=== PATIENT | male | born 1950 | race Caucasian/White ===

== ENCOUNTER → 2017-04-08 08:40 | Outpatient (POV) | payer MEDICARE, OTHER, SELFPAY | PROVIDERS: Family Provider Family Medicine; Visit Provider Dermatology | DX: Z00.00 Encounter for general adult medical examination without abnormal findings (principal) ==

== ENCOUNTER 2017-12-15 20:59 | Observation (INO) ==
--- NOTE | 2017-12-15 21:17 | Emergency Department Note ---
ED Disposition Clinical Impression: Pneumothorax on left Disposition: Admitted as Observation Condition on Discharge: Good - Critical Care Critical Care Time: No Attestation: On 12/15/17, the high probability of a clinically significant, sudden or life threatening deterioration of the following system(s) required my full and direct attention, intervention and personal management. The time I documented below is in addition to time spent performing reported procedures but includes the following listed in this critical care notation. Medical Decision Making - Medical Records Medical records reviewed: Yes: I reviewed the patient's medical records. - Bashir Inquiry Pt receiving controlled substance: No Vital Signs: 12/15/17 21:03 12/15/17 23:24 Temperature 98.6 F Temperature Source Oral Pulse Rate [Right Radial] 78 Respiratory Rate 20 Blood Pressure [Right Arm] 137/76 Blood Pressure Mean [Right Arm] 96 02 Sat by Pulse Oximetry 98 99 Oxygen Delivery Method Nasal Cannula Oxygen Flow Rate (LPM) 2 - Lab Data Lab results reviewed: Yes: I reviewed the patient's lab results. Lab Results 12/15/17 21:24: WBC 10.7, RBC 4.59 L, Hgb 14.2, Hct 43.0, MCV 93.7, MCH 31.0, MCHC 33.1, RDW 12.3, Plt Count 219, MPV 7.2 L, Neut % (Auto) 88.6 H, Lymph % (Auto) 6.5 L, Stanton % (Auto) 4.1, Eos % (Auto) 0.7, Baso % (Auto) 0.2, Neut # (Auto) 9.5 H, Lymph # (Auto) 0.7, Stanton # (Auto) 0.4, Eos # (Auto) 0.1, Baso # (Auto) 0.0, Total Counted 100, Neutrophils % (Manual) 94 H, Lymphocytes % (Manual) 6 L, Platelet Estimate Normal, Anisocytosis 1+ 12/15/17 21:24: Sodium 141, Potassium 4.3, Chloride 106, Carbon Dioxide 29, Anion Gap 10.3, BUN 23 H, Creatinine 1.23, Estimated Creat Clear 66, Estimated GFR 58 L, Est GFR ( Amer) 71, Glucose 136 H, Calcium 9.1 Result diagrams: 12/15/17 21:24 12/15/17 21:24 Orders (Tests/Meds): ED MEDICATIONS Discontinued Medications Generic Name Dose Route Start Last Admin Trade Name Freq PRN Reason Stop Dose Admin Ketorolac Tromethamine 60 mg 12/15/17 21:11 12/15/17 21:13 Toradol 30mg/Ml Vial IM 12/15/17 21:12 60 mg ONCE ONE Administration ORDERS Category Date Time Status CT abdomen pelvis w con Stat Cat Scan 12/15/17 21:[address] angio chest Stat Cat Scan 12/15/17 21:[address] cervical spine wo con Stat Cat Scan 12/15/17 21:[address] head/brain wo con Stat Cat Scan 12/15/17 21:12 Taken XR chest AP Stat Exams 12/15/17 21:18 Taken XR hip LT 2-3V w/pelvis Stat Exams 12/15/17 21:11 Taken - Radiology Data #1 Image(s): Chest, Pelvis Image Reviewed: Yes I reviewed the patient's radiology image Preliminary Findings: No Fracture Seen - CT Data CT Scan: Head, C-Spine, Abdomen, Pelvis Time Received: 23:[address] Reviewed: Yes: I have viewed the radiologist's interpretation Preliminary Findings: Abnormal (lt apical pxt ) Trauma Alert The Trauma Alert Section documentation for [id number] EmeryDeacon Thomas was populated with data that defaulted in from the disk sharpener in the Trauma Alert Triage Assessment on _Reg Service Date] to provide within this report, the status of the patient on arrival to the ED during the Trauma Alert. - Arrival Mode of Arrival: Family Vehicle Description of Symptoms (Recalled from ER Triage Doc. by RN): pt states that today at approx 1600 he fell off of his horse, which he estimates at approx 5 feet. pt c/o left ribs and left hip pain. - Pre-Hospital Care Pre-Hospital Care Given: No - Height/Weight/BMI Height: 6 ft Weight: 182 lb Weight Measurement Method: Stated by Patient Body Mass Index: 24.7 - Immunization Status Hx Immunizations Up to Date: Yes Trauma HPI - General Chief Complaint: Fall Stated Complaint: AO [id number] fell off horse,left side Time Seen by Provider: 12/15/17 21:05 Mode of Arrival: Family Vehicle Source of Information: Patient, Spouse, Medical Record Limitations: No Limitations Description of Symptoms (Recalled from ER Triage Doc. by RN): pt states that today at approx 1600 he fell off of his horse, which he estimates at approx 5 feet. pt c/o left ribs and left hip pain. - History of Present Illness MD complaint: fall Onset (ago): hour(s) Loss of Consciousness: no Location: chest Location - Extremities: Left: shoulder Severity: moderate Context: fall Associated symptoms: denies other symptoms ( ) - Related Data Home Medications Medication Instructions Recorded Confirmed Aspirin 81 mg PO DAILY 12/15/17 12/15/17 Citalopram Hydrobromide [Celexa] 10 mg PO DAILY 12/15/17 12/15/17 Simvastatin 20 mg PO DAILY 12/15/17 12/15/17 Allergies Allergy/AdvReac Type Severity Reaction Status Date / Time No Known Allergies Allergy Verified 12/15/17 21:09 [facility] History I have reviewed the patient's past medical history: Yes Medical History: Denies:: Cancer, Diabetes Mellitus Type 1, Diabetes Mellitus Type 2, MRSA Amputation: No Fractures: Yes - Social History Smoking Status: Former smoker Alcohol Intake: never - Psychiatric History Expresses thoughts of harming self/others: None Suicide Plan Description: No Plan ROS Obtained: Yes All systems reviewed & no additional complaints - Constitutional Constitutional: Denies fever(s), Denies headache(s) - Eyes Eyes: Denies change in vision - ENT Ears, Nose, Mouth, and Throat: Denies sore throat - Cardiovascular Cardiovascular: Reports chest pain - Respiratory Respiratory: No cough, No dyspnea, No coughing up blood - Gastrointestinal Gastrointestingal: Denies: abdominal pain, nausea, vomiting - Genitourinary Male Genitourinary: Denies hematuria - Musculoskeletal Musculoskeletal: Denies joint pain, Denies back pain, Denies neck pain - Integumentary/Breasts Skin/Breast: Denies rash - Neurologic Neurologic: Denies headache(s), Denies seizure-like activity Physical Exam - General General appearance: alert, in no apparent distress - Head Head exam: normocephalic - Eye Eye exam: Present: PERRL, EOMI - ENT ENT exam: Present: mucous membranes moist - Neck Neck exam: Present: trachea midline - Chest Chest inspection: Present: symmetric chest wall rise, other (tender lt chest no sq air ) - Respiratory Respiratory exam: Present: normal lung sounds bilaterally. Absent: respiratory distress - Cardiovascular Cardiovascular exam: Present: regular rate, systolic murmur. Absent: rubs, clicks - Abdominal Exam Abdominal exam: Present: soft. Absent: tenderness - Extremities Exam Extremities exam: Present: full ROM - Back Exam Back exam: Present: normal inspection, other (pelvis stable ). Absent: vertebral tenderness - Neurological Exam Neurological exam: Present: alert, oriented X3, CN II-XII intact, other (gcs=15). Absent: motor sensory deficit - Psychiatric Psychiatric exam: Absent: normal affect - Skin Skin exam: Absent: rash
[2017-12-15 21:36] LABS: Basophils % 0.2 % (0.1-2.0); Eosinophils # 0.1 K/mm3 (0.0-0.4); Eosinophils % 0.7 % (0.1-12.0); Hemoglobin 14.2 g/dL (14.1-18.0); Lymphocytes # 0.7 K/mm3 (0.7-4.5); Lymphocytes % 6.5 K/mm3 (10-50); Mean Corpuscular HGB Conc 33.1 g/dL (31.8-35.4); Mean Corpuscular Volume 93.7 fl (80-94); Mean Platelet Volume 7.2 fl (7.4-10.4); Monocytes # 0.4 K/mm3 (0.1-1.0); Monocytes % 4.1 % (1.7-9.3); Neutrophils # 9.5 K/mm3 (1.8-7.8); Neutrophils % 88.6 % (37.0-80.0); Platelet Count 219 K/mm3 (142-424); Red Blood Count 4.59 M/mm3 (4.60-6.20); Red Cell Distribution Width 12.3 % (11.5-17.5); White Blood Count 10.7 K/mm3 (4.8-10.8)
[2017-12-15 21:41] LABS: Anion Gap 10.3 mEq/L (5-15); Calcium 9.1 mg/dL (8.5-10.1); Potassium 4.3 mmoL/L (3.5-5.1)
[2017-12-15 22:12] LABS: Anisocytosis 1+; Lymphocytes % 6 % (10-50); Neutrophils % 94 % (42-76); Total Cells Counted 100
[2017-12-16 06:16] LABS: Basophils % 0.5 % (0.1-2.0); Eosinophils % 0.6 % (0.1-12.0); Hematocrit 39.7 % (42.0-52.0); Lymphocytes # 1.4 K/mm3 (0.7-4.5); Lymphocytes % 21.1 K/mm3 (10-50); Mean Corpuscular HGB Conc 32.7 g/dL (31.8-35.4); Mean Corpuscular Hemoglobin 30.9 pg (27.0-31.2); Mean Corpuscular Volume 94.3 fl (80-94); Mean Platelet Volume 7.3 fl (7.4-10.4); Monocytes # 0.4 K/mm3 (0.1-1.0); Monocytes % 5.9 % (1.7-9.3); Neutrophils # 4.8 K/mm3 (1.8-7.8); Neutrophils % 71.9 % (37.0-80.0); Platelet Count 187 K/mm3 (142-424); Red Blood Count 4.21 M/mm3 (4.60-6.20); Red Cell Distribution Width 12.3 % (11.5-17.5); White Blood Count 6.7 K/mm3 (4.8-10.8)
[2017-12-16 06:19] LABS: Anion Gap 9.5 mEq/L (5-15); Calcium 8.5 mg/dL (8.5-10.1); Potassium 4.5 mmoL/L (3.5-5.1)
--- NOTE | 2017-12-16 07:56 | Pharmacy Consult Notes ---
[facility] Pharmacy VTE Monitoring - Patient Demographics Admission date: 12/15/17 Report Date: 12/16/17 Time: 07:56 Allergies/Adverse Reactions: Patient Allergies No Known Allergies Allergy (Verified 12/15/17 21:09) Height: 1.83 m Weight: 80.484 kg Patient Problems: Current Active Problems Pneumothorax on left (Acute) - VTE Risk Labs: VTE Related Lab Results Hgb 13.0 g/dL (14.1-18.0) L 12/16/17 05:32 Hct 39.7 % (42.0-52.0) L 12/16/17 05:32 Plt Count 187 K/mm3 (142-424) 12/16/17 05:32 BUN 23 mg/dL (7-18) H 12/16/17 05:32 Creatinine 1.14 mg/dL (0.70-1.30) 12/16/17 05:32 Estimated Creat Clear 70 mL/min (0-300) 12/16/17 05:32 Was VTE Risk Assessment Performed: Yes VTE Score: 1 VTE Risk Level: Very Low Risk - Prophylaxis VTE Prophylaxis Ordered?: Yes Types of VTE Prophylaxis: TEDS Knee High Location of Applied Device: Bilateral Lower Extremeties - VTE Diagnosis Confirmed Treatment or plan recommended: Continue Current Treatment
--- NOTE | 2017-12-16 10:24 | Progress Note ---
Internal Medicine - PN: Subj *Date: 12/16/17 *Time: 10:21 Interval history: See the H&P. Clinically the patient is very stable. He states that he is not as sore as he was last night. His vital signs are stable. He has some tenderness on the left side of his chest and there is a subtle bruise toward the posterior aspect of the chest on the left side. On auscultation he has a definite rub. The radiologic studies were reviewed with Dr. Hoyos. On admission the chest x-ray did not reveal the pneumothorax but the CT scan did. Today a 10% pneumothorax is visible on his chest x-ray raising the question of whether the pneumothorax is increasing. It certainly has not decreased overnight. Exam Vital signs and Labs for Last 24 Hours: Temp Pulse Resp BP Pulse Ox 98.1 F 57 L 18 117/61 99 12/16/17 07:55 12/16/17 07:55 12/16/17 07:55 12/16/17 07:55 12/16/17 07:55 Laboratory Results - last 24 hr 12/15/17 21:24: WBC 10.7, RBC 4.59 L, Hgb 14.2, Hct 43.0, MCV 93.7, MCH 31.0, MCHC 33.1, RDW 12.3, Plt Count 219, MPV 7.2 L, Neut % (Auto) 88.6 H, Lymph % (Auto) 6.5 L, Saunders % (Auto) 4.1, Eos % (Auto) 0.7, Baso % (Auto) 0.2, Neut # (Auto) 9.5 H, Lymph # (Auto) 0.7, Saunders # (Auto) 0.4, Eos # (Auto) 0.1, Baso # (Auto) 0.0, Total Counted 100, Neutrophils % (Manual) 94 H, Lymphocytes % (Manual) 6 L, Platelet Estimate Normal, Anisocytosis 1+ 12/15/17 21:24: Sodium 141, Potassium 4.3, Chloride 106, Carbon Dioxide 29, Anion Gap 10.3, BUN 23 H, Creatinine 1.23, Estimated Creat Clear 66, Estimated GFR 58 L, Est GFR ( Amer) 71, Glucose 136 H, Calcium 9.1 12/16/17 05:32: WBC 6.7 D, RBC 4.21 L, Hgb 13.0 L, Hct 39.7 L, MCV 94.3 H, MCH 30.9, MCHC 32.7, RDW 12.3, Plt Count 187, MPV 7.3 L, Neut % (Auto) 71.9, Lymph % (Auto) 21.1, Saunders % (Auto) 5.9, Eos % (Auto) 0.6, Baso % (Auto) 0.5, Neut # (Auto) 4.8, Lymph # (Auto) 1.4, Saunders # (Auto) 0.4, Eos # (Auto) 0.0, Baso # (Auto) 0.0 12/16/17 05:32: Sodium 143, Potassium 4.5, Chloride 108 H, Carbon Dioxide 30, Anion Gap 9.5, BUN 23 H, Creatinine 1.14, Estimated Creat Clear 70, Estimated GFR 64, Est GFR ( Amer) 77, Glucose 98 D, Calcium 8.5 I & O for Last 24 hours: Intake & Output 12/13/17 12/14/17 12/15/17 12/16/17 11:59 11:59 11:59 11:59 Intake Total 360 / 360 Balance 360 / 360 Weight 177 lb 7 oz - Constitutional no acute distress - *Routine HEENT Exam Head: Present: atraumatic - *Routine Neck Exam Present: supple, full ROM. Absent: trauma - Routine Chest/Breast/Axilla Exam Comments: There is some tenderness on the left chest. There is a bruise posteriorly on the chest very small and subtle. He has a definite rub on auscultation of the chest on the left. There is no crepitus to palpation. - *Routine Cardiovascular Exam Present: RRR - *Routine Abdominal Exam Present: soft, normoactive bowel sounds. Absent: tenderness Assessment and Plan (1) Pneumothorax on left Current visit: Yes Status: Acute Category: Medical Code(s): J93.9 - Pneumothorax, unspecified (2) Fall from horse Current visit: Yes Status: Acute Category: Medical Code(s): V80.010A - Animal-rider injured by fall from or being thrown from horse in noncollision accident, initial encounter (3) Hyperlipidemia Current visit: Yes Status: Chronic Category: Medical Code(s): E78.5 - Hyperlipidemia, unspecified - Assessment and plan all Dx Assessment and Plan for all problems:: He will be observed overnight again with oxygen in place. Follow-up chest x-ray in the morning.
--- NOTE | 2017-12-17 08:11 | Progress Note ---
Internal Medicine - PN: Subj *Date: 12/17/17 *Time: 08:08 Interval history: Patient states he is feeling well this morning. He is still having some mild pain in his left side. He slept well last night and has been eating well. Denies any shortness of breath. Exam Vital signs and Labs for Last 24 Hours: Temp Pulse Resp BP Pulse Ox 97.8 F 84 20 111/64 92 L 12/17/17 07:51 12/17/17 07:51 12/17/17 07:51 12/17/17 07:51 12/17/17 07:51 I & O for Last 24 hours: Intake & Output 12/14/17 12/15/17 12/16/17 12/17/17 11:59 11:59 11:59 11:59 Intake Total 360 / 360 2807 / 2807 Balance 360 / 360 2807 / 2807 Weight 177 lb 7 oz Radiology Reports for the Last 24 Hours: CXR - 1. Left apical pneumothorax once again noted unchanged to slightly smaller. 2. Increasing airspace disease in the left lung base consistent with atelectasis or infiltrate or contusion with small effusion - Constitutional no acute distress - *Routine Respiratory Exam Absent: wheezes Comments: rub on left side, some faint rales on the left as well - *Routine Cardiovascular Exam Present: RRR - *Routine Abdominal Exam Present: soft, normoactive bowel sounds. Absent: tenderness - *Routine Extremities Exam Absent: edema Assessment and Plan (1) Pneumothorax on left Current visit: Yes Status: Acute Category: Medical Code(s): J93.9 - Pneumothorax, unspecified (2) Fall from horse Current visit: Yes Status: Acute Category: Medical Code(s): V80.010A - Animal-rider injured by fall from or being thrown from horse in noncollision accident, initial encounter (3) Hyperlipidemia Current visit: Yes Status: Chronic Category: Medical Code(s): E78.5 - Hyperlipidemia, unspecified - Assessment and plan all Dx Assessment and Plan for all problems:: CXR report reviewed. Will discuss findings with Dr. Acosta.
--- NOTE | 2017-12-17 08:30 | History & Physical Report ---
*Admission Date: 12/15/17 *Chief complaint: left side pain *History of present illness: Mr. Land is a 67-year-old male who was riding a horse yesterday. He states the horse went one way and he fell off the other way. He landed on his left side. This happened at approximately 4 PM. He states he went inside and laid down and was feeling better until he tried to get up and had significant pain in his left ribs. He had pain with deep breathing and therefore presented to the emergency room for evaluation. He had numerous x-rays no fractures were found, however he did have a left-sided pneumothorax. He was admitted for serial x-rays. At this time, the patient is feeling much better. He states his pain has improved and he is anxious to go home. [facility] History Medical History: Reports:: Hyperlipidemia Denies:: Cancer, Diabetes Mellitus Type 1, Diabetes Mellitus Type 2, Internal Pacemaker, MRSA Other Medical History: Reports: Arthritis Other Surgeries: Yes: Colonoscopy. No: Pacemaker Amputation: No Fractures: Yes - *Social History Educational Level: Completed High School Smoking Status: Former smoker Alcohol Intake: never Occupational Status: retired Housing: house Household Members: spouse - Psychiatric History Expresses thoughts of harming self/others: None Suicide Plan Description: No Plan *Family Hx:: Coronary Artery Disease, Diabetes, Heart Attack, Hyperlipidemia, Hypertension, Stroke Review of Systems - Constitutional Denies fatigue, Denies weakness - Eyes Denies blurry vision, Denies double vision - ENT Denies nasal congestion, Denies sore throat - *Cardiovascular Reports chest pain (left sided), Denies shortness of breath (but pain with deep breathing) - *Respiratory Reports pain on inspiration, Denies cough - *Gastrointestinal Denies abdominal pain, Denies loose stools, Denies nausea, Denies vomiting - *Genitourinary Denies difficulty urinating, Denies painful urination - *Musculoskeletal Denies joint pain - *Neurologic Denies headache(s), Denies seizure-like activity, Denies dizziness, Denies weakness Meds Home Medications Medication Instructions Recorded Confirmed Type Aspirin 81 mg PO DAILY 12/15/17 12/16/17 History Citalopram Hydrobromide [Celexa] 10 mg PO DAILY 12/15/17 12/16/17 History Simvastatin 20 mg PO DAILY 12/15/17 12/16/17 History Allergies Allergy/AdvReac Type Severity Reaction Status Date / Time No Known Allergies Allergy Verified 12/15/17 21:09 Exam Vital signs and Labs for Last 24 Hours: Temp Pulse Resp BP Pulse Ox 98.1 F 57 L 18 117/61 99 12/16/17 07:55 12/16/17 07:55 12/16/17 07:55 12/16/17 07:55 12/16/17 07:55 Laboratory Results - last 24 hr 12/15/17 21:24: WBC 10.7, RBC 4.59 L, Hgb 14.2, Hct 43.0, MCV 93.7, MCH 31.0, MCHC 33.1, RDW 12.3, Plt Count 219, MPV 7.2 L, Neut % (Auto) 88.6 H, Lymph % (Auto) 6.5 L, Hardin % (Auto) 4.1, Eos % (Auto) 0.7, Baso % (Auto) 0.2, Neut # (Auto) 9.5 H, Lymph # (Auto) 0.7, Hardin # (Auto) 0.4, Eos # (Auto) 0.1, Baso # (Auto) 0.0, Total Counted 100, Neutrophils % (Manual) 94 H, Lymphocytes % (Manual) 6 L, Platelet Estimate Normal, Anisocytosis 1+ 12/15/17 21:24: Sodium 141, Potassium 4.3, Chloride 106, Carbon Dioxide 29, Anion Gap 10.3, BUN 23 H, Creatinine 1.23, Estimated Creat Clear 66, Estimated GFR 58 L, Est GFR ( Amer) 71, Glucose 136 H, Calcium 9.1 12/16/17 05:32: WBC 6.7 D, RBC 4.21 L, Hgb 13.0 L, Hct 39.7 L, MCV 94.3 H, MCH 30.9, MCHC 32.7, RDW 12.3, Plt Count 187, MPV 7.3 L, Neut % (Auto) 71.9, Lymph % (Auto) 21.1, Hardin % (Auto) 5.9, Eos % (Auto) 0.6, Baso % (Auto) 0.5, Neut # (Auto) 4.8, Lymph # (Auto) 1.4, Hardin # (Auto) 0.4, Eos # (Auto) 0.0, Baso # (Auto) 0.0 12/16/17 05:32: Sodium 143, Potassium 4.5, Chloride 108 H, Carbon Dioxide 30, Anion Gap 9.5, BUN 23 H, Creatinine 1.14, Estimated Creat Clear 70, Estimated GFR 64, Est GFR ( Amer) 77, Glucose 98 D, Calcium 8.5 I & O for Last 24 hours: Intake & Output 12/13/17 12/14/17 12/15/17 12/16/17 11:59 11:59 11:59 11:59 Intake Total 360 / 360 Balance 360 / 360 Weight 177 lb 7 oz - Constitutional no acute distress - *Routine HEENT Exam Head: Present: normocephalic, atraumatic Eye: Present: EOMI, PERRL ENT: Present: mucous membranes moist - *Routine Neck Exam Present: supple, full ROM - Routine Chest/Breast/Axilla Exam Chest wall: Present: tenderness (left sided chest wall ttp) - *Routine Respiratory Exam Present: CTA bilaterally - *Routine Cardiovascular Exam Present: RRR - *Routine Abdominal Exam Present: soft, normoactive bowel sounds. Absent: tenderness - *Routine Extremities Exam Absent: edema - Routine Back/Spine/Pelvis Exam Back/Spine: Present: full ROM - *Routine Skin Exam Present: intact - *Routine Neurological Exam Present: alert, oriented X3 H&P: Result - Impressions Abd CT 1. No acute intra-abdominal or pelvic findings. 2. Small left-sided pneumothorax without midline shift. 3. 2 mm pleural-based nodule left lower lobe. Recommend 3 month follow-up 4. Subcutaneous contusion overlying the left lateral pelvic region and left lateral abdominal wall 5. 2 liver lesions one of which is isodense and may represent a small cyst and one which is hypodense in the right hepatic lobe at 9 mm etiology indeterminate. Suggest 3 month follow-up without and with contrast with hemangioma protocol CTA 1. Small left-sided pneumothorax of approximately 10%. No midline shift. No displaced fractures evident. 2. Left-sided pulmonary nodules the largest measuring 10 mm in the left lower lobe. Suggest 3 month follow-up. CXR - Small left apical pneumothorax which is below limits of resolution on the chest x-ray but seen on the cervical spine CT. Otherwise negative Head CT and hip x-ray - negative Assessment and Plan (1) Pneumothorax on left Current visit: Yes Status: Acute Category: Medical Code(s): J93.9 - Pneumothorax, unspecified (2) Fall from horse Current visit: Yes Status: Acute Category: Medical Code(s): V80.010A - Animal-rider injured by fall from or being thrown from horse in noncollision accident, initial encounter (3) Hyperlipidemia Current visit: Yes Status: Chronic Category: Medical Code(s): E78.5 - Hyperlipidemia, unspecified - Assessment and plan all Dx Assessment and Plan for all problems:: Awaiting repeat chest x-ray results from this morning. If pneumothorax has resolved, patient may be able to be discharged home.
[2017-12-17 09:12] LABS: Basophils % 0.3 % (0.1-2.0); Eosinophils # 0.1 K/mm3 (0.0-0.4); Eosinophils % 0.9 % (0.1-12.0); Hemoglobin 13.1 g/dL (14.1-18.0); Lymphocytes # 0.9 K/mm3 (0.7-4.5); Lymphocytes % 13.9 K/mm3 (10-50); Mean Corpuscular HGB Conc 32.8 g/dL (31.8-35.4); Mean Corpuscular Volume 94.6 fl (80-94); Mean Platelet Volume 7.8 fl (7.4-10.4); Monocytes # 0.3 K/mm3 (0.1-1.0); Monocytes % 4.3 % (1.7-9.3); Neutrophils # 5.2 K/mm3 (1.8-7.8); Neutrophils % 80.6 % (37.0-80.0); Platelet Count 176 K/mm3 (142-424); Red Blood Count 4.23 M/mm3 (4.60-6.20); Red Cell Distribution Width 12.4 % (11.5-17.5); White Blood Count 6.5 K/mm3 (4.8-10.8)
--- NOTE | 2017-12-20 15:39 | Discharge Summary ---
General - General Admission date:: 12/16/17 Discharge date: 12/17/17 HPI HPI: Mr. Land is a 67-year-old male who was riding a horse yesterday. He states the horse went one way and he fell off the other way. He landed on his left side. This happened at approximately 4 PM. He states he went inside and laid down and was feeling better until he tried to get up and had significant pain in his left ribs. He had pain with deep breathing and therefore presented to the emergency room for evaluation. He had numerous x-rays no fractures were found, however he did have a left-sided pneumothorax. He was admitted for serial x-rays. At this time, the patient is feeling much better. He states his pain has improved and he is anxious to go home. Hospital Course Hospital Course: The patient's CTA showed a small left sided pneumothorax. His initial CXR did not show the pneumothorax. A repeat CXR the next day showed a 10% pneumothorax, therefore the patient was kept another night for monitoring with oxygen in place. He had another CXR showing a decrease in the pneumothorax but some effusion vs. infiltrate in the left base. His WBC was normal and he was stable to be discharged home on some cefdinir. Objective Vital signs: Temp Pulse Resp BP Pulse Ox 97.8 F 84 20 111/64 92 L 12/17/17 07:51 12/17/17 07:51 12/17/17 07:51 12/17/17 07:51 12/17/17 07:51 Narrative: - Constitutional no acute distress - *Routine HEENT Exam Head: Present: normocephalic, atraumatic Eye: Present: EOMI, PERRL ENT: Present: mucous membranes moist - *Routine Neck Exam Present: supple, full ROM - Routine Chest/Breast/Axilla Exam Chest wall: Present: tenderness (left sided chest wall ttp) - *Routine Respiratory Exam Present: CTA bilaterally - *Routine Cardiovascular Exam Present: RRR - *Routine Abdominal Exam Present: soft, normoactive bowel sounds. Absent: tenderness - *Routine Extremities Exam Absent: edema - Routine Back/Spine/Pelvis Exam Back/Spine: Present: full ROM - *Routine Skin Exam Present: intact - *Routine Neurological Exam Present: alert, oriented X3 DS: Diagnosis - Discharge Diagnosis (1) Pneumothorax on left Status: Acute (2) Fall from horse Status: Acute (3) Hyperlipidemia Status: Chronic Discharge Plan - Patient Discharge Instructions ACTIVITY: Limited activity DIET: continue same diet Additional Instructions: Notify of SOA, fever. Patient Instructions: DI for Pneumothorax Forms: Transfer Record - ED - Follow up Plan Follow up with: Miky Acosta MD [Primary Care Provider] - 12/20/17 Disposition: Home, Self-[facility] Medications: Home Medications Medication Instructions Recorded Confirmed Type Aspirin 81 mg PO DAILY 12/15/17 12/16/17 History Citalopram Hydrobromide [Celexa] 10 mg PO DAILY 12/15/17 12/16/17 History Simvastatin 20 mg PO DAILY 12/15/17 12/16/17 History Prescriptions/Medication Reconciliation: New Ibuprofen [Ibuprofen 600mg Tablet] 600 mg PO TID #90 tab Cefdinir [Omnicef 300mg Capsule] 300 mg PO BID #20 cap Continue Simvastatin 20 mg PO DAILY Aspirin 81 mg PO DAILY Citalopram Hydrobromide [Celexa] 10 mg PO DAILY
== END 2017-12-17 14:50 | disposition home or self-care (01) ==
LOC: ER 20:59 → 2ND 20:59
PROVIDERS: ADMIT Family Medicine; ATTEND Family Medicine
CPT/HCPCS: 36415; 70450; 71010; 71020; 71045; 71046; 71275; 72125; 73502; 74177; 80048; 85007; 85025; 96372; 99284; G0378; Q9967

== ENCOUNTER → 2017-12-20 15:18 | Outpatient (CLI) | payer MEDICARE, OTHER, SELFPAY ==
--- NOTE | 2017-12-20 15:22 | XR_ITS ---
XR chest 2V HISTORY: Follow-up pneumothorax ITS.REASON: TRAUMATIC PNEUMONTHORAX ORDERING PHYSICIAN: Miky Acosta MD PATIENT AGE: 67 years COMPARISON: 12/17/2017 FINDINGS: Left apical pneumothorax is slightly smaller compared to the previous exam. The apical pleural distance is approximately 12 mm compared to 20 mm on the previous exam. No midline shift. There are new atelectatic changes in the right lung base and persistent atelectasis or infiltrate in the left lung base slightly improved. There does remain a small left pleural effusion. Previously noted blunting of the right CP angle is not apparent on today's exam. IMPRESSION: 1. Decreasing size left apical pneumothorax 2. Persistent but improving left basilar airspace disease with persistent small left effusion with slight increase in atelectasis in the right lung base
== END ==
PROVIDERS: PCP Family Medicine; Visit Provider Family Medicine
DX: S27.0XXD Traumatic pneumothorax, subsequent encounter (principal)
CPT/HCPCS: 71046

== ENCOUNTER → 2017-12-27 11:16 | Outpatient (CLI) | payer MEDICARE, OTHER, SELFPAY ==
--- NOTE | 2017-12-27 11:22 | XR_ITS ---
XR chest 2V HISTORY: Follow-up pneumothorax ITS.REASON: TRAUMATIC PNEUMOTHORAX ORDERING PHYSICIAN: Lou Lofton PATIENT AGE: 67 years COMPARISON: 12/20/2017 FINDINGS: The cardiomediastinal silhouette and pulmonary vascularity are within normal limits. Left apical pneumothorax is no longer apparent. There are mild atelectatic changes in the left lung base with persistent pleural thickening in the left lung base laterally consistent with small effusion which is slightly improved. The right lung is clear resolution of the right basilar atelectasis. No acute bony anomalies. IMPRESSION: 1. No evidence of residual pneumothorax. 2. Mild residual left basilar atelectasis with small left effusion
== END ==
PROVIDERS: PCP Nurse Practitioner Family; Visit Provider Nurse Practitioner Family
DX: S27.0XXD Traumatic pneumothorax, subsequent encounter (principal)
CPT/HCPCS: 71046

== ENCOUNTER → 2020-08-07 08:53 | Outpatient (CLI) | payer MEDICARE, OTHER, SELFPAY ==
--- NOTE | 2020-08-07 08:56 | FL_ITS ---
PROCEDURE: FL BARIUM SWALLOW CLINICAL INDICATION: GASTROESOPHAGEAL REFLUX DISEASE W/O ESOPHAGITIS COMPARISON: No exams were available for comparison FINDINGS: Fluoroscopy time: 1 minutes and 35 seconds. The upper and mid esophagus has an unremarkable appearance. There is a small sliding hiatal hernia with a constricting Schatzki's ring which does not permit passage of a 12.5 mm barium tablet. There was some mild spasm of the cricopharyngeus muscle IMPRESSION: Small sliding hiatal hernia with constricting Schatzki's ring as described above. Dictated by: George Hoyos MD 08/07/2020 13:40 George Hoyos MD in [place] 08/07/2020 13:40
== END ==
PROVIDERS: PCP Family Medicine; Visit Provider Family Medicine
DX: K21.9 Gastro-esophageal reflux disease without esophagitis (principal)
CPT/HCPCS: 74220

== ENCOUNTER → 2022-07-13 10:34 | Outpatient (CLI) | payer MEDICARE, OTHER, SELFPAY ==
--- NOTE | 2022-07-13 10:40 | XR_ITS ---
FINAL REPORT CLINICAL HISTORY: RT SHOULDER PAIN FINDINGS: RIGHT SHOULDER Three views demonstrate no acute fracture or dislocation. The joint spaces appear normal. The visualized bony structures are well aligned. No soft tissue abnormality is seen. IMPRESSION: No acute process. Reviewed, Interpreted and Dictated by Urbano Stubbs III, MD Transcribed by Kelley Kimble Authenticated and [facility]
== END ==
PROVIDERS: PCP Family Medicine; Visit Provider Family Medicine
DX: M25.511 Pain in right shoulder (principal)
CPT/HCPCS: 73030

== ENCOUNTER 2024-04-20 09:53 | Outpatient (CLI) | payer MEDICARE, OTHER, SELFPAY ==
[2024-04-20 10:20] LABS: Blood Urea Nitrogen 30 mg/dl (9-20); Estimated Glomerular Filt Rate 82 ml/min (>60); GFR (African American) 100 ML/MIN (>60)
== END 2024-04-20 23:59 | disposition home or self-care (01) ==
LOC: LAB 09:54
PROVIDERS: PCP Family Medicine; Visit Provider Surgery
DX: K40.90 Unilateral inguinal hernia, without obstruction or gangrene, not specified as recurrent (principal)
CPT/HCPCS: 36415; 82565; 84520

== ENCOUNTER 2024-05-05 08:30 | Outpatient (CLI) | payer MEDICARE, SELFPAY ==
--- NOTE | 2024-05-05 08:35 | CT_ITS ---
FINAL REPORT CLINICAL HISTORY: Hernia COMPARISON: None FINDINGS: Axial images through the pelvis were performed by computed tomography afther the administration of IV and oral contrast. Sagittal and coronal reconstruction images were performed. This study was performed with techniques to keep radiation doses as low as reasonably achievable (ALARA). Individualized dose reduction techniques using automated exposure control or adjustment of mA and/or kV according to the patient's size were employed. The appendix is normal in appearance. There is moderate diverticulosis of the sigmoid colon without acute inflammatory change. No acute fracture or dislocation identified. No free fluid or adenopathy is present. No mass or fluid collection is present. There is degenerative change seen at the L5-S1 level with a moderate disc bulge, moderate neural foraminal and canal stenosis. Bilateral fat-containing inguinal hernias are present, which do not contain bowel. IMPRESSION: No acute process. Bilateral fat-containing inguinal hernias are present, which do not contain bowel. Reviewed, Interpreted and Dictated by Troy Espinosa MD Transcribed by Annel Garrison Authenticated and [facility]
[2024-05-05] MEDS: IOPAMIDOL-370 (76%);100ML BOTTLE 75 ML IV (09:03)
[2024-05-05] MEDS: SODIUM CHLORIDE 0.9% 10ML SYR (RAD ONLY) 10 ML IV (09:03)
== END 2024-05-05 23:59 | disposition home or self-care (01) ==
LOC: RAD 08:32
PROVIDERS: PCP Family Medicine; Visit Provider Surgery
DX: K40.90 Unilateral inguinal hernia, without obstruction or gangrene, not specified as recurrent (principal)
CPT/HCPCS: 72193; Q9967

== ENCOUNTER 2024-05-30 11:49 | Outpatient (CLI) | payer MEDICARE, SELFPAY ==
[2024-05-30 11:56] VITALS: BMI 24.5
--- NOTE | 2024-05-30 12:15 | ECG_ITS ---
APPROVED REPORT Exam: Resting ECG HR:71 bpm ECG Measurements Heart Rate 71 AXES NV 183 P 70 QRSd 80 QRS 78 QT 334 T 73 QTc 356 Conclusion SINUS RHYTHM EARLY REPOLARIZATION [ST ELEVATION WITH NORMALLY INFLECTED T-WAVE] BORDERLINE ECG UNCONFIRMED REPORT Electronically signed by : Joe Sweet MD 05/31/2024 08:50:36
[2024-05-30 12:25] LABS: Microscopic, Urine URINE MICROSCOPIC (MICROSCOPIC)
[2024-05-30 12:29] LABS: Basophils % 0.6 % (0.1-2.0); Eosinophils # 0.1 K/mm3 (0.0-0.4); Eosinophils % 1.4 % (0.1-12.0); Hematocrit 41.1 % (42.0-52.0); Lymphocytes # 0.9 K/mm3 (0.7-4.5); Mean Corpuscular HGB Conc 34.1 g/dL (31.8-35.4); Mean Corpuscular Hemoglobin 31.1 pg (27.0-31.2); Mean Corpuscular Volume 91.3 fl (80-94); Mean Platelet Volume 9.8 fl (7.4-10.4); Monocytes # 0.4 K/mm3 (0.1-1.0); Neutrophils # 3.7 K/mm3 (1.8-7.8); Neutrophils % 73.8 % (37.0-80.0); Platelet Count 206 K/mm3 (142-424); Red Cell Distribution Width 11.7 % (11.5-17.5)
[2024-05-30 12:31] LABS: Appearance,Urine CLEAR (Clear); Blood, Urine Negative (Negative); Color,Urine YELLOW (Yellow); Glucose,Urine (UA) Negative (Negative); Ketones,Urine TRACE (Negative); Leukocyte Esterase,Urine Negative (Negative); Nitrate,Urine Negative (Negative); Protein,Urine Negative (Negative); Specific Gravity, Urine 1.025 (1.005-1.030); Urobilinogen,Urine 0.2 EU/dl (0.2)
[2024-05-30 12:33] LABS: Chloride 104 mmol/L (98-107); Sodium 136 mmol/L (136-145)
[2024-05-30 12:34] LABS: Potassium 4.7 mmoL/L (3.5-5.1)
[2024-05-30 12:37] LABS: Anion Gap 11.7 mEq/L (5-15); Blood Urea Nitrogen 24 mg/dl (9-20); Calcium 9.3 mg/dl (8.4-10.2); Carbon Dioxide 25 mmol/L (22.0-30.0); Creatinine Clearance Estimated 73 mL/min (50-200); Estimated Glomerular Filt Rate 82 ml/min (>60); GFR (African American) 99 ML/MIN (>60); Glucose 96 mg/dl (74-100)
[2024-05-30 12:40] LABS: Bilirubin,Urine 1+ (Negative)
[2024-05-30 12:46] LABS: Squamous Epithelial Cell,Urine Occasional #/hpf (0-5)
== END 2024-05-30 23:59 | disposition home or self-care (01) ==
LOC: PREOP 11:51
PROVIDERS: PCP Family Medicine; Visit Provider Surgery
DX: Z01.810 Encounter for preprocedural cardiovascular examination (principal); K40.90 Unilateral inguinal hernia, without obstruction or gangrene, not specified as recurrent; R94.31 Abnormal electrocardiogram [ECG] [EKG]
CPT/HCPCS: 80048; 81001; 85025; 93005

== ENCOUNTER 2024-06-05 06:01 | Day surgery (SDC) | payer MEDICARE, OTHER, SELFPAY ==
[2024-05-30 12:52] VITALS: BMI 24.5
--- NOTE | 2024-05-31 10:30 | PC.NURSE ---
Reviewed EKG w/ R. DHRUV Rashid. Determined ok to proceed w/ surgery but recommended pt f/u w/ cardiology to further review EKG results. Spoke w/ pt, appt scheduled for 06/08 @0930. Pt verbalized understanding.
[2024-06-05] VITALS (11 sets, daily range): BP systolic 101–129; BP diastolic 51–67; PULSE 62–100; RESP 16–18; TEMP 36.3–43; O2SAT 93–96
[2024-06-05] MEDS: LACTATED RINGERS 1000ML 1,000 ML 25 ML IV (06:42)
[2024-06-05] MEDS: CEFAZOLIN SODIUM 2 GM in 0.9 % SODIUM CHLORIDE 100 ML IV (07:05)
[2024-06-05] MEDS: ROPIVACAINE 0.5% 30ML VIAL 150 MG (07:39)
[2024-06-05] MEDS: LIDOCAINE 1% 20ML MDV 20 ML (07:39)
--- NOTE | 2024-06-05 09:56 | EXP.OP.NOTE ---
Date of procedure: 06/05/24 Pre-op Diagnosis:: Bilateral inguinal hernias Post-op Diagnosis:: Same Procedure performed:: Bilateral laparoscopic inguinal hernia repair (TEPP) with placement of medium sized Bard 3D max mesh left side and large size Bard 3D max right side Surgeon:: Urbano Martínez MD BOTTLING MACHINE OPERATOR:: Fred Flores Anesthesia: GETA Estimated blood loss (mL): 15 Clinical Note:: Patient presents for hernia repair. He was referred by Dr. Corey Acosta. I saw him in the office on 04/20/2024. He had noticed a protruding bulge in the right inguinal/groin area beginning approximately December or January. No inciting event. He denies significant pain although he does have some burning discomfort. After I saw him in the office patient did ask about possible laparoscopic repair. There was questionable hernia on the left. Given his I had him undergo CT scan. CT scan of the pelvis reveals bilateral fat-containing hernias. Given the bilateral nature clinically and on imaging I felt that attempt at laparoscopic repair would be reasonable with concentration on the right side. Patient understood and agreed to proceed. Operative findings:: He had a complex indirect hernia on the right side with thickened hernia sac extending deep into the right inguinal canal to the right hemiscrotum. There was also some herniated preperitoneal fat as an indirect hernia. On the left side there was a small direct and small indirect hernia. Operative note:: Consent was obtained and patient was taken the operating room. He was given preoperative intravenous antibiotics. In the operating room he was placed in the supine position. General anesthesia was induced via endotracheal tube. Abdomen and perineum were prepped and draped in the standard surgical fashion after Wilcox catheter was placed. Subumbilical skin incision was made. Dissection was carried down to the anterior rectus fascia. This was incised to the right of the linea alba. Rectus muscles were retracted laterally. Preperitoneal space was entered. Dissecting balloon trocar was inserted and preperitoneal space was dissected free. This was done under laparoscopic surveillance. Dissecting balloon trocar was removed and replaced with structural balloon trocar. CO2 pneumo preperitoneum was achieved to 15 mmHg. Under laparoscopic visualization a couple 5 mm trocars were inserted in the midline inferior to the umbilicus. Attention was first turned to the right inguinal area. Landmarks were identified initially identifying Dave's ligament and pubic tubercle. Dissection was carried out identifying inferior epigastric vessels and iliac vessels. Cord structures were difficult to discern the anatomy as there was herniated preperitoneal fat medially as well as laterally. There was also a thickened adherent hernia sac extending deep into the right hemiscrotum. Prolonged dissection was carried out laterally in the preperitoneal space to allow space for mesh placement. Prolonged dissection was carried out of the cord dissecting free the herniated fatty tissues and ultimately dissecting free the hernia sac from the cord as it extended deep into the right inguinal canal. After dissection was complete on the right side attention was turned to dissection on the left. Once again landmarks were identified initially identifying Dave's ligament and lacunar ligament. Pubic tubercle was identified. The inferior epigastric vessels were identified and preperitoneal space was dissected out. There was limited hernia sac as an indirect hernia which was easily dissected free. There was some preperitoneal fatty tissues as an small direct hernia. Iliac vessels were identified as well. Dissection was carried out laterally to allow for mesh placement. Please note that local anesthetic was infiltrated laparoscopically prior to mesh placement bilaterally for inguinal nerve block. Medium sized Bard 3D max mesh was placed in the left preperitoneal space to cover the iliopectineal orifice with good overlap repairing both small hernias. A large sized Bard 3D max mesh was inserted in the preperitoneal space and oriented intracorporeally to cover the iliopectineal orifice on the right side. Both repairs appeared adequate. There appeared to be good hemostasis. Mesh was observed in position as pneumo preperitoneum was evacuated. Trocars removed. Posterior fascia and peritoneum at the umbilicus were incised to evacuate any intra-abdominal gas. Anterior rectus fascia was then closed with several interrupted 0 Vicryl sutures. Local anesthetic was infiltrated. Skin incisions were closed with 4-0 Monocryl in a subcuticular fashion. Steri-Strips and dressings were applied. Condition: stable Disposition: PACU Complications:: None immediately apparent
--- NOTE | 2024-06-05 10:11 | EXP.ANES.CKL ---
[facility] Disclaimer: The information contained in this section may have been updated after the patient was seen, as this information can be updated by other users. Medical History Enlarged prostate GERD (gastroesophageal reflux disease) HLD (hyperlipidemia) Surgical History No history of previous surgery Family History Other Family history of CVA Family history of heart disease Social History (Updated 06/05/24 @ 06:30 by Carol Dotson RN) Smoking Status: Never smoker alcohol intake: never substance use type: denies use current occupational status: retired Travel in the last 8 weeks: None household members: spouse housing: house current occupational exposures/hazards: Yes caffeine: Yes Have you lived/traveled outside [place] in past 30 days?: No Contact w/someone who lives/traveled outside [place] past 30 days?: No Exposure to someone with infectious disease in past 14 days?: No Do you have a fever (greater than 100.4 F or 38 C)?: No Have you tested positive for COVID-19: No Exposed to someone with COVID-19 in past 14 days?: No Do you have a sore throat?: No Do you have a cough?: No Do you have any weakness?: No Are you experiencing any nausea/vomitting?: No Do you have any diarrhea?: No Are you experiencing any unusual bleeding?: No Do you have any muscle aches/pain?: No Do you have any abdominal pain?: No Are you experiencing loss of taste or smell?: No [facility] Anesthesia Checklist Patient Identification Patient Identification: Arm Band and Family Structural Data Admitted From: Home Planned Operative Procedure/s: Lap Bilateral Inguinal Hernia repair Consent for Planned Operative Procedure(s) Verified: Yes Verified Documents: Surgical Consent and History and Physical NPO Status Verified Time NPO: 00:00 Additional verifications Patient : No Anesthesia Reactions: No Hx Blood Transfusions: No Blood Transfusion Reaction: No Cephalosporin Allergy: No Previous Colonoscopy: Yes Airway Assessment Mallampati Score:: Class I Dentition: Good Dentition Neurological Assessment Level of Consciousness: Awake, Alert, Appropriate and Follows Commands Hx Seizures: No Numbness or tingling in extremities: No Anesthesia Plan Anesthesia Risk discussed: Yes ASA Class: II Anesthesia Type: General
--- NOTE | 2024-06-05 10:13 | EXP.ANES.I ---
[facility] Anesthesia Record Part I Anesthesia Record I Intake, IV Amount: 1,700 Hydration: Adequate Estimated blood loss (mL): 15 Urine output (mL): 100 Blood Products used (#): none Blood Pressure: 127/64 SaO2: 94 Pulse Rate: 92 Airway Patency: Patent Respiratory Rate: 18 Temperature: 97.4 F Patient is:: Drowsy and Stable Stable to PACU at:: 10:01
[2024-06-05 13:51] LABS: Microscopic,Cath URINE MICROSCOPIC (MICROSCOPIC)
[2024-06-05 13:57] LABS: Appearance,Urine/Cath CLEAR (Clear); Bilirubin,Cath Negative (Negative); Blood, Urine/Cath 2+ (Negative); Color,Urine/Cath YELLOW (Yellow); Glucose,Urine/Cath (UA) Negative (Negative); Ketones,Urine/Cath Negative (Negative); Leukocyte Esterase,Cath Negative (Negative); Nitrate,Cath Negative (Negative); Protein,Urine/Cath Negative (Negative); Specific Gravity, Urine/Cath >= 1.030 (1.005-1.030); Urobilinogen,Cath 0.2 EU/dl (0.2)
--- NOTE | 2024-06-06 10:03 | P.PNANES_ITS ---
[facility] Anesthesia Record Part II Anesthesia Record Part II Discharge Time: 10:30 Destination: Surgical Day Care (OP Surgery) PACU nurse assessment reviewed?: Yes Patient Condition:: Good Anesthesia Complications:: None Swallowing reflex intact?: Yes Airway Patency: Patent Cyanosis?: No Blood Pressure: 126/63 SaO2: 95 Respiratory Rate: 16 Pulse Rate: 95 Temperature: 97.4 F Mental Status: Alert & Oriented Pain level:: 0 Nausea and/or vomitting:: None Intake, IV Amount: 0 Hydration: Adequate
[2024-06-06 10:04] VITALS: BP 126/63; PULSE 95; RESP 16; TEMP 36.3; O2SAT 95
== END 2024-06-05 11:05 | disposition home or self-care (01) ==
PROVIDERS: PCP Family Medicine; Visit Provider Surgery
PROC: (CPT 49650; principal; 2024-06-05 07:30)
DX: K40.20 Bilateral inguinal hernia, without obstruction or gangrene, not specified as recurrent (principal)
CPT/HCPCS: 49650; 81001; 96374; J3490; C1781; J0690; J1100; J2405; J3010; J7120

== ENCOUNTER 2024-06-13 09:02 | Outpatient (CLI) | payer MEDICARE, OTHER, SELFPAY ==
[2024-06-13 10:20] LABS: Anion Gap 7.6 mEq/L (5-15); Blood Urea Nitrogen 19 mg/dl (9-20); Calcium 9.4 mg/dl (8.4-10.2); Carbon Dioxide 28 mmol/L (22.0-30.0); Chloride 104 mmol/L (98-107); Estimated Glomerular Filt Rate 82 ml/min (>60); GFR (African American) 99 ML/MIN (>60); Glucose 94 mg/dl (74-100); Potassium 4.6 mmoL/L (3.5-5.1); Sodium 135 mmol/L (136-145)
== END 2024-06-13 23:59 | disposition home or self-care (01) ==
LOC: LAB 09:03
PROVIDERS: PCP Family Medicine; Visit Provider Physician Assistant
DX: R94.31 Abnormal electrocardiogram [ECG] [EKG] (principal); E78.5 Hyperlipidemia, unspecified
CPT/HCPCS: 36415; 80048

== ENCOUNTER 2024-06-16 09:18 | Outpatient (CLI) | payer MEDICARE, OTHER, SELFPAY ==
--- NOTE | 2024-06-16 09:23 | CA_ITS ---
APPROVED REPORT EXAM: Comprehensive 2D, Doppler, and color-flow Echocardiogram Flue Lining Dipper: Viktoria Cortes RT(R) Ht: 6 ft 0 in Wt: 181lbs BSA: 2.04 BP: 125/73 mmHg Indications: abn EKG, hyperlipidemia 2D Dimensions LA Volume 33.70 mL LA Volume Index 16.029314 mL/m2 (M/F) 16-34 EF AP4 57.90 % GL Strain -21.3 % M-Mode Dimensions RVDd 3.63 cm (0.9-2.6) LA Diam 4.04 cm (1.9-4.0) LVDd 4.54 cm (3.5-5.7) LVDs 3.18 cm (3.5-5.7) IVSd 0.98 cm (0.6-1.1) PWd 0.76 cm (0.6-1.1) EF (Teich) 57.30% FS 30.00% EDV (Teich) 94.40 mL TAPSE 2.64 (<1.7) ESV (Teich) 40.30 mL LV Diastology E Decel Time 167 (160-240 msec) E/A Ratio 1.0 Mitral Valve MV E Max Jerry. 66.0 (40-130 cm/s) MV A Velocity 64.0 (40-130 cm/s) E/A Ratio 1.02 MV PHT 49.0 ms Left Ventricle The left ventricle is normal size. The left ventricular systolic function is normal. The left ventricular ejection fraction is within the normal range. There is increased LV wall thickness. There is normal LV segmental wall motion. The left ventricular diastolic function is normal. LVEF is 55%. Right Ventricle Right ventricle is mildly dilated. The right ventricular systolic function is normal. Atria Left atrium is mildly dilated. Right atrium is mildly dilated. There is no Doppler evidence of interatrial shunt. Aortic Valve The aortic valve is mildly thickened. There is no aortic valvular stenosis. No aortic regurgitation is present. Mitral Valve The mitral valve is normal in structure. No evidence of mitral valve stenosis. Mild mitral regurgitation. Tricuspid Valve Tricuspid valve is grossly normal in structure and function. Mild tricuspid regurgitation. RVSP is 20-25 mmHg. Pulmonic Valve The pulmonary valve is normal in structure. Trace pulmonic regurgitation. Great Vessels The aortic root is normal in size. IVC is normal in size and collapses >50% with inspiration. Pericardium There is no pericardial effusion. Other Information Study Quality: Fair Conclusion Normal biventricular systolic function. Mild RV dilation. Mild biatrial dilation. Mild MR, mild TR. Electronically signed by : Manuela Aranda MD 06/21/2024 14:18:42
== END 2024-06-16 23:59 | disposition home or self-care (01) ==
LOC: RT 09:19
PROVIDERS: PCP Family Medicine; Visit Provider Physician Assistant
DX: I51.7 Cardiomegaly (principal); I34.0 Nonrheumatic mitral (valve) insufficiency; I36.1 Nonrheumatic tricuspid (valve) insufficiency; R94.31 Abnormal electrocardiogram [ECG] [EKG]; E78.5 Hyperlipidemia, unspecified
CPT/HCPCS: 93306